=== PATIENT | female | born 1990 | race Two or more races ===

== ENCOUNTER 2020-07-30 15:11 | Emergency (ER) | payer SELFPAY ==
[~2020-07-30] VITALS: Ht 157.5 cm; Wt 63.5 kg
[2020-07-30 15:20] VITALS: BP 146/97
[2020-07-30 15:56] LABS: BASOPHILS # (AUTO) 0.1 /CMM (0.0-0.2); BASOPHILS % (AUTO) 0.8 % (0.0-2.0); HEMATOCRIT 40 % (33-45); HEMOGLOBIN 13.2 g/dL (11.5-14.8); LYMPHOCYTES # (AUTO) 2.7 /CMM (0.8-4.8); LYMPHOCYTES % (AUTO) 37.1 % (20.0-44.0); MEAN CORPUSCULAR HGB CONC 33 g/dl (31.0-36.0); MEAN CORPUSCULAR VOLUME 91 fL (82-100); MONOCYTES # (AUTO) 0.5 /CMM (0.1-1.30); MONOCYTES % (AUTO) 7.1 % (2.0-12.0); NEUTROPHILS # (AUTO) 3.3 /CMM (1.8-8.9); PLATELET COUNT (AUTO) 297 /CMM (150-450); RED BLOOD CELL COUNT(AUTO) 4.43 MIL/uL (4.0-5.2); WHITE BLOOD COUNT (AUTO) 7.2 K/uL (4.3-11.0)
[2020-07-30 16:21] LABS: CALCIUM, SERUM 9.3 mg/dL (8.5-10.1); CREATININE 0.8 mg/dL (0.6-1.3); POTASSIUM 3.7 mmol/L (3.5-5.1)
--- NOTE | 2020-07-30 17:16 | NUR ---
Patient discharged to home in stable condition. Written and verbal after care instructions given. Patient verbalizes understanding of instruction.
== END 2020-07-30 17:17 | disposition home or self-care (01) ==
LOC: EDBD 15:18 → ER 15:18
DX: R06.02 Shortness of breath (principal); R53.83 Other fatigue
CPT/HCPCS: 36415; 71045-TC; 80048-TC; 85025-TC

== ENCOUNTER 2020-12-03 08:26 | Outpatient (CLI) | payer BC ==
[2020-12-03 09:38] LABS: ALBUMIN 3.6 g/dL (3.4-5.0); BILIRUBIN,TOTAL 0.4 mg/dL (0.2-1.0); CALCIUM, SERUM 9.1 mg/dL (8.5-10.1); CREATININE 0.9 mg/dL (0.6-1.3); POTASSIUM 4.2 mmol/L (3.5-5.1); TOTAL PROTEIN, SERUM 7.9 g/dL (6.4-8.2)
[2020-12-03 09:40] LABS: BASOPHILS % (AUTO) 0.3 % (0.0-2.0); HEMATOCRIT 41 % (33-45); HEMOGLOBIN 13.4 g/dL (11.5-14.8); MEAN CORPUSCULAR HGB CONC 33 g/dl (31.0-36.0); MEAN CORPUSCULAR VOLUME 89 fL (82-100); MONOCYTES # (AUTO) 0.5 /CMM (0.1-1.30); MONOCYTES % (AUTO) 10.5 % (2.0-12.0); NEUTROPHILS % (AUTO) 66.2 % (43.0-81.0); PLATELET COUNT (AUTO) 305 /CMM (150-450); RED BLOOD CELL COUNT(AUTO) 4.55 MIL/uL (4.0-5.2); WHITE BLOOD COUNT (AUTO) 4.6 K/uL (4.3-11.0)
[2020-12-03 10:09] LABS: BILIRUBIN,URINE NEGATIVE (NEGATIVE); COLOR,URINE YELLOW (YELLOW); LEUKOCYTE ESTERASE ,URINE NEGATIVE (NEGATIVE); NITRITE, URINE NEGATIVE (NEGATIVE); PROTEIN,URINE NEGATIVE (NEGATIVE); UGLUCOSE NEGATIVE (NEGATIVE); UROBILINOGEN,URINE 0.2 EU/dL (0.2)
== END 2020-12-03 23:59 | disposition home or self-care (01) ==
LOC: LAB 08:26
PROVIDERS: ATTEND Family Medicine
DX: R10.9 Unspecified abdominal pain (principal)
CPT/HCPCS: 36415; 80053-TC; 82150-TC; 83690-TC; 85025-TC; 86677; 87086-TC

== ENCOUNTER 2021-05-10 12:17 | Emergency (ER) | payer BC ==
[~2021-05-10] VITALS: Ht 165.1 cm; Wt 54.4 kg
--- NOTE | 2021-05-10 12:54 | NUR ---
BIBS FROM HOME TO ER BED 17. AAOX4. NOT IN RESP DISTRESS. AMBULATORY. CAME IN FOR SLEEPLESSNESS FOR THE PAST 2 WEEKS. PT REPORTS THAT SHE WOULD ON BE ASLEEP FOR COUPLE OF HOURS WHICH IS CAUSING HER TO NOT FEEL WELL. AWAITING MD FOR DALY
[2021-05-10 13:31] LABS: BASOPHILS # (AUTO) 0.1 /CMM (0.0-0.2); BASOPHILS % (AUTO) 0.9 % (0.0-2.0); HEMATOCRIT 39 % (33-45); HEMOGLOBIN 12.8 g/dL (11.5-14.8); LYMPHOCYTES # (AUTO) 1.7 /CMM (0.8-4.8); LYMPHOCYTES % (AUTO) 29.4 % (20.0-44.0); MEAN CORPUSCULAR HGB CONC 33 g/dl (31.0-36.0); MEAN CORPUSCULAR VOLUME 90 fL (82-100); MONOCYTES # (AUTO) 0.5 /CMM (0.1-1.30); MONOCYTES % (AUTO) 9.6 % (2.0-12.0); NEUTROPHILS # (AUTO) 3.4 /CMM (1.8-8.9); NEUTROPHILS % (AUTO) 59.1 % (43.0-81.0); PLATELET COUNT (AUTO) 286 /CMM (150-450); RED BLOOD CELL COUNT(AUTO) 4.33 MIL/uL (4.0-5.2); WHITE BLOOD COUNT (AUTO) 5.7 K/uL (4.3-11.0)
[2021-05-10 13:38] LABS: CREATININE 0.7 mg/dL (0.6-1.3); POTASSIUM 3.7 mmol/L (3.5-5.1)
[2021-05-10] MEDS ORDERED: ZOLP5TAB2 PO (14:13)
[2021-05-10 14:54] VITALS: BP 138/100
--- NOTE | 2021-05-10 14:54 | NUR ---
Patient discharged to home in stable condition. Written and verbal after care instructions given. Patient verbalizes understanding of instruction.
== END 2021-05-10 14:55 | disposition home or self-care (01) ==
LOC: ER 12:17
DX: G47.00 Insomnia, unspecified (principal); Z79.899 Other long term (current) drug therapy
CPT/HCPCS: 36415; 80048-TC; 85025-TC

== ENCOUNTER 2021-05-17 19:10 | Emergency (ER) | payer BC ==
[~2021-05-17] VITALS: Ht 165.1 cm; Wt 57.6 kg
[~2021-05-17 19:10] MED LIST: ZOLP5TAB2 PO
[2021-05-17] MEDS ORDERED: LORAZEPAM INJ 2 MG/ML VIAL ONE (19:52)
[2021-05-17 20:03] LABS: BASOPHILS % (AUTO) 0.5 % (0.0-2.0); EOSINOPHILS % (AUTO) 3.2 % (0.0-6.0); HEMATOCRIT 39 % (33-45); HEMOGLOBIN 12.9 g/dL (11.5-14.8); LYMPHOCYTES # (AUTO) 3.2 K/uL (0.8-4.8); LYMPHOCYTES % (AUTO) 42.3 % (20.0-44.0); MEAN CORPUSCULAR HGB CONC 33 g/dl (31.0-36.0); MEAN CORPUSCULAR VOLUME 90 fL (82-100); MONOCYTES # (AUTO) 0.8 K/uL (0.1-1.30); MONOCYTES % (AUTO) 10.1 % (2.0-12.0); NEUTROPHILS # (AUTO) 3.3 K/uL (1.8-8.9); NEUTROPHILS % (AUTO) 43.9 % (43.0-81.0); PLATELET COUNT (AUTO) 271 K/uL (150-450); RED BLOOD CELL COUNT(AUTO) 4.32 MIL/uL (4.0-5.2); WHITE BLOOD COUNT (AUTO) 7.5 K/uL (4.3-11.0)
[2021-05-17] MEDS: IV NS 0.9% 1,000 ML BAG IV ONE (20:04)
[2021-05-17] MEDS: LORAZEPAM INJ 2 MG/ML VIAL IV ONE (20:05)
--- NOTE | 2021-05-17 20:05 | NUR ---
BIBS TO ER BED 7. AAOX4. NOT IN RESP DISTRESS. AMBULATORY. CAME IN FOR R/O HYPERTHYROIDISM. C/O SLEEPLESSNESS AND FEELING ANXIOUS. PROVIDER WAS AT BEDSIDE FOR EVAL. ORDERS RECEIVED, NOTED AND CARRIED OUT
[2021-05-17 20:11] LABS: CALCIUM, SERUM 8.7 mg/dL (8.5-10.1); CREATININE 0.8 mg/dL (0.6-1.3); POTASSIUM 3.9 mmol/L (3.5-5.1)
[2021-05-17 20:32] LABS: THYROID STIMULATING HORMONE 0.936 uIU/mL (0.358-3.74)
[2021-05-17 20:52] LABS: BILIRUBIN,URINE NEGATIVE (NEGATIVE); COLOR,URINE YELLOW (YELLOW); LEUKOCYTE ESTERASE ,URINE NEGATIVE (NEGATIVE); NITRITE, URINE NEGATIVE (NEGATIVE); PH,URINE 7.5 (5.0-8.0); PROTEIN,URINE NEGATIVE (NEGATIVE); UGLUCOSE NEGATIVE (NEGATIVE); UROBILINOGEN,URINE 0.2 EU/dL (0.2)
[2021-05-17 21:04] LABS: BACTERIA,URINE Few /HPF (None Seen); MUCUS,URINE Few /LPF (None Seen); RBC,URINE 0-2 /HPF (0-2); SQUAMOUS EPITHELIAL CELL,UR Moderate /HPF (None Seen); URINE AMORPHOUS PHOSPHATES Many /HPF (None Seen); WBC,URINE 0-2 /HPF (0-3)
[2021-05-17] MEDS ORDERED: LORA-259 PO (21:22)
[2021-05-17 21:34] VITALS: BP 112/70
--- NOTE | 2021-05-17 21:34 | NUR ---
Patient discharged to home in stable condition. Written and verbal after care instructions given. Patient verbalizes understanding of instruction.IV removed. Catheter intact and site benign. Pressure and 4x4 applied to site. No bleeding noted.(pt. name) ambulatory with a steady gait
== END 2021-05-17 21:36 | disposition home or self-care (01) ==
LOC: ER 19:12
DX: R00.2 Palpitations (principal); G47.00 Insomnia, unspecified; Z79.899 Other long term (current) drug therapy
CPT/HCPCS: 36415; 71045; 80048; 81001; 84439; 84443; 84703; 85025; 93005; 96361; 96374; 99285; J2060; J7030

== ENCOUNTER 2021-06-02 09:58 | Outpatient (CLI) | payer BC ==
[~2021-06-02 09:58] MED LIST changes: +LORA-259 PO
[2021-06-02 12:45] LABS: FREE T4 (FREE THYROXINE) 0.82 ng/dL (0.76-1.46); THYROID STIMULATING HORMONE 1.424 uIU/mL (0.358-3.74)
[2021-06-03 08:07] LABS: PROLACTIN 17.2 ng/mL (4.8-23.3)
== END 2021-06-02 23:59 | disposition home or self-care (01) ==
LOC: LAB 09:58
PROVIDERS: ATTEND Family Medicine
DX: F41.1 Generalized anxiety disorder (principal); G47.00 Insomnia, unspecified
CPT/HCPCS: 36415; 80061-TC; 82306; 82607-TC; 84146; 84439-TC; 84443-TC

== ENCOUNTER 2021-07-15 06:27 | Emergency (ER) | payer BC ==
[~2021-07-15] VITALS: Ht 165.1 cm; Wt 57.2 kg
[2021-07-15 06:30] VITALS: BP 122/80
[2021-07-15] MEDS ORDERED: CEPH500T PO (06:40)
[2021-07-15] MEDS ORDERED: PHEN-704 PO (06:41)
[2021-07-15 06:55] LABS: BILIRUBIN,URINE NEGATIVE (NEGATIVE); COLOR,URINE YELLOW (YELLOW); LEUKOCYTE ESTERASE ,URINE SMALL (NEGATIVE); NITRITE, URINE NEGATIVE (NEGATIVE); PROTEIN,URINE NEGATIVE (NEGATIVE); UGLUCOSE NEGATIVE (NEGATIVE); UROBILINOGEN,URINE 0.2 EU/dL (0.2)
--- NOTE | 2021-07-15 07:50 | NUR ---
Patient discharged to home in stable condition. Written and verbal after care instructions given. Patient verbalizes understanding of instruction.
[2021-07-15 10:08] LABS: BACTERIA,URINE Moderate /HPF (None Seen); SQUAMOUS EPITHELIAL CELL,UR Moderate /HPF (None Seen)
== END 2021-07-15 07:50 | disposition home or self-care (01) ==
LOC: ER 06:30
DX: N30.91 Cystitis, unspecified with hematuria (principal); Z79.899 Other long term (current) drug therapy
CPT/HCPCS: 81001; 84703-TC; 87086-TC; 87186-TC

== ENCOUNTER 2022-06-03 12:54 | Emergency (ER) | payer BC, OTHER ==
[~2022-06-03] VITALS: Ht 162.6 cm; Wt 57.6 kg
[~2022-06-03 12:54] MED LIST changes: +CEPH500T PO; +PHEN-704 PO
[2022-06-03 13:18] VITALS: BP 154/93
--- NOTE | 2022-06-03 13:30 | NUR ---
PT SEEN BY DR. RUVALCABA FOR EVAL W/ ORDER NOTED.
[2022-06-03] MEDS ORDERED: PARO20TA7 PO (13:31)
--- NOTE | 2022-06-03 13:37 | NUR ---
Patient discharged to home in stable condition. Written and verbal after care instructions given. Patient verbalizes understanding of instruction.
== END 2022-06-03 13:47 | disposition home or self-care (01) ==
LOC: ER 12:58
DX: G47.00 Insomnia, unspecified (principal); F41.9 Anxiety disorder, unspecified; Z79.899 Other long term (current) drug therapy

== ENCOUNTER 2022-06-23 12:03 | Outpatient (CLI) | payer BC, OTHER ==
[~2022-06-23 12:03] MED LIST changes: +PARO20TA7 PO
[2022-06-23] MEDS ORDERED: GADOTERATE MEGLUMINE 10 MMOL/20 ML VIAL IV ONE (12:04)
== END 2022-06-23 23:59 | disposition home or self-care (01) ==
LOC: MRI 12:03
PROVIDERS: ATTEND Family Medicine
DX: G47.9 Sleep disorder, unspecified (principal); R42 Dizziness and giddiness
CPT/HCPCS: 70553; A9575